=== PATIENT | female | born 1965 | race Caucasian/White ===

== ENCOUNTER → 2020-01-04 | Outpatient (CLI) | payer BC ==
[~2020-01-04] MED LIST: ALPR1TAB2 PO; AMLO5TAB10 PO; BUSP5TAB PO; CELE100C59 PO; DOXE6TAB3 PO; ERGO500027 PO; GABA-586 PO; SIMV10TA15 PO; SUCR1TAB35 PO; TRAM50TA PO; VENL75TA PO
--- NOTE | 2020-01-04 15:13 | RAD ---
AP and Lateral Views of the Chest 01/04/2020 12:00 AM Indication: Angina, cough Comparison: None Findings: There is no focal consolidation or infiltrate identified. The cardiomediastinal silhouette is within normal limits. There is no evidence of pneumothorax or pleural effusion. No acute osseous abnormalities are identified. Impression: No evidence of acute cardiopulmonary process. Electronically signed by: Christian Wahl MD (01/04/2020 3:10 PM) [id number]
== END | disposition home or self-care (01) ==
LOC: MERGE 14:41 → DXRAD 14:41
PROVIDERS: ATTEND Family Medicine
DX: J20.8 Acute bronchitis due to other specified organisms (principal); G47.37 Central sleep apnea in conditions classified elsewhere; M51.37 Other intervertebral disc degeneration, lumbosacral region; K25.9 Gastric ulcer, unspecified as acute or chronic, without hemorrhage or perforation; K58.8 Other irritable bowel syndrome; M79.7 Fibromyalgia; I10 Essential (primary) hypertension; E88.81 Metabolic syndrome and other insulin resistance; I73.00 Raynaud's syndrome without gangrene; I20.1 Angina pectoris with documented spasm; E78.5 Hyperlipidemia, unspecified
CPT/HCPCS: 71046

== ENCOUNTER 2020-01-05 15:36 | Inpatient (IN) | payer BC ==
[~2020-01-05] VITALS: Ht 162.6 cm; Wt 104.3 kg
[~2020-01-05 15:36] MED LIST changes: -AMLO5TAB10 PO; -SUCR1TAB35 PO
[2020-01-05] MEDS ORDERED: IV NORMAL SALINE 1,000ML 1,000 ML IV SCH (16:02)
--- NOTE | 2020-01-05 16:06 | PHYS DOC ---
Adult General Chief Complaint Chief Complaint: CHEST PAIN HPI HPI Patient is a 54-year-old female with past medical history significant for myocardial infarction with no intervention needed and is currently on no anticoagulation. She also has a history of hypertension hyperlipidemia. Patient presents secondary to ongoing chest pain x3 days duration that has worsened and is currently rated 8/10 located on the left side of the chest with radiation of the back and left arm described as an ache/pressure. She was seen at her primary care physician's office who sent her over to the ER. She was given 1 spray of sublingual nitro which improved her pain and also a full aspiri n. Patient states that her pain is worse with exertion. Review of Systems Review of Systems All other systems were reviewed and found to be within normal limits, except as documented in this note. Allergies Allergies Allergies Coded Allergies Type Severity Reaction Last Updated Verified No Known Drug Allergies 01/05/20 No Physical Exam Physical Exam Constitutional: Well developed, well nourished, no acute distress, non-toxic appearance. [] HENT: Normocephalic, atraumatic, bilateral external ears normal, oropharynx moist, no oral exudates, nose normal. [] Eyes: PERRLA, EOMI, conjunctiva normal, no discharge. [] Neck: Normal range of motion, no tenderness, supple, no stridor. [] Cardiovascular:Heart rate regular rhythm, no murmur [] Lungs & Thorax: Bilateral breath sounds clear to auscultation [] Abdomen: Bowel sounds normal, soft, no tenderness, no masses, no pulsatile masses. [] Skin: Warm, dry, no erythema, no rash. [] Back: No tenderness, no CVA tenderness. [] Extremities: No tenderness, no cyanosis, no clubbing, ROM intact, no edema. [] Neurologic: Alert and oriented X 3, normal motor function, normal sensory function, no focal deficits noted. [] Psychologic: Affect normal, judgement normal, mood normal. [] EKG EKG EKG shows sinus rhythm with a heart rate of [address] changes. Intervals are normal. [] Radiology/Procedures Radiology/Procedures [] Course & Med Decision Making Course & Med Decision Making Pertinent Labs and Imaging studies reviewed. (See chart for details) This patient is seen for chest pain with a very significant history. Examination and history suggest unstable angina. Will obtain EKG and laboratory analysis and chest x-ray. Will give 3 sublingual nitro and 2 mg of morphine to try and relieve her pain. Patient is already received aspirin. 1700: Pain 4/:10 nitro and 2 mg of morphine[address] Will place 1 inch of Nitropaste. Labs pending. 1756: Patient is still having ongoing chest discomfort despite 1 inch of Nitropaste. Her blood pressure remains elevated as well with 190 systolic. We will stop Nitropaste and start a nitro drip. I did speak to Dr. Vela who accepts admission to the ICU and will consult cardiology. Trend troponins overnight. Dragon Disclaimer Dragon Disclaimer This electronic medical record was generated, in whole or in part, using a voice recognition dictation system. Departure Departure: Impression: Primary Impression: Unstable angina Additional Impression: Hypertension Disposition: ADMITTED INPATIENT Admitting Physician: David Vela Condition: STABLE Referrals: DAVID VELA MD (PCP) HEART Score for Chest Pain PTs The HEART Score for CP Pts HEART Score for Chest Pain: HEART Score for Chest Pain Response (Comments) Value History Moderately Suspicious 1 ECG Normal 0 Age >45 - < 65 1 Risk Factors >3 Risk Factors or Hx CAD 2 Troponin < Normal Limit 0 Total 4 Risk Factors: Risk Factors: DM, Current or recent (<one month) smoker, HTN, HLP, family history of CAD, obesity. Risk Scores: Score 0 - 3: 2.5% MACE over next 6 weeks - Discharge Home Score 4 - 6: 20.3% MACE over next 6 weeks - Admit for Clinical Observation Score 7 - 10: 72.7% MACE over next 6 weeks - Early Invasive Strategies Problem Qualifiers BENITEZ LAST DO Jan 05, 2020 16:06
[2020-01-05] MEDS ORDERED: NITROGLYCERIN SUBLINGUAL 0.4 MG BOTTLE OF 25. SL PRN (16:15)
[2020-01-05] MEDS ORDERED: MORPHINE SULFATE 2 MG/ML DISP.SYRIN. IV ONE ×2 (16:15→18:45)
--- NOTE | 2020-01-05 16:37 | RAD ---
Single view of the chest. 01/05/2020 4:02 PM Indication: Chest pain Comparison: None Findings: There is no focal consolidation. There is no pleural effusion or pneumothorax. The cardiomediastinal silhouette and pulmonary vasculature are within normal limits. No acute osseous abnormalities are seen. Impression: No evidence of acute cardiopulmonary process. Electronically signed by: Christian Wahl MD (01/05/2020 4:34 PM) [id number]
[2020-01-05 16:40] LABS: BASO % 0 % (0-3); EOS # 0.2 x10^3/uL (0.0-0.7); EOS % 3 % (0-3); HEMATOCRIT 41.8 % (36.0-47.0); HEMOGLOBIN 13.6 g/dL (12.0-15.5); LYMPH # 3.3 x10^3/uL (1.0-4.8); LYMPH % 39 % (24-48); MEAN CORPUSCULAR HEMOGLOBIN 29 pg (25-35); MEAN CORPUSCULAR HGB CONC 33 g/dL (31-37); MEAN CORPUSCULAR VOLUME 89 fL (79-100); MONO # 0.6 x10^3/uL (0.0-1.1); MONO % 7 % (0-9); NEUT # 4.4 x10^3uL (1.8-7.7); NEUT % 52 % (31-73); PLATELET COUNT 408 x10^3/uL (140-400); RED BLOOD COUNT 4.68 x10^6/uL (3.50-5.40); WHITE BLOOD COUNT 8.5 x10^3/uL (4.0-11.0)
[2020-01-05] MEDS ORDERED: NITROGLYCERIN OINT 1 GM PACKET. TP ONE (17:00)
[2020-01-05 17:38] LABS: ANION GAP 11 (6-14); BLOOD UREA NITROGEN 7 mg/dL (7-20); CARBON DIOXIDE 26 mmol/L (21-32); CHLORIDE 104 mmol/L (98-107); CREATININE 0.6 mg/dL (0.6-1.0); GFR 104.6; GLUCOSE 93 mg/dL (70-99); POTASSIUM 3.7 mmol/L (3.5-5.1); SODIUM 141 mmol/L (136-145)
[2020-01-05 17:54] LABS: LIPASE 52 U/L (73-393); MAGNESIUM 1.9 mg/dL (1.8-2.4)
[2020-01-05] MEDS ORDERED: ONDANSETRON PF 4 MG/2 ML VIAL. IVP PRN (18:00)
[2020-01-05] MEDS ORDERED: NITROGLYCERIN PREMIX 250 ML IV ONE (18:00)
--- NOTE | 2020-01-05 19:45 | NUR ---
Admission Note: Pt transported via EMS from ED to ICU room 2, VSS, no n/v at this time. Pt continues to have pain (morphine given), Nitro drip infusing as ordered, pt voiding clear yellow urine, admission documentation completed. Pt unsure of some of home medications (completed what she new and ordered per physician), to bring home meds in am to ensure accuracy. Pt oriented to room, box lunch provided, will continue to monitor.
[2020-01-05 19:57] VITALS: BP 173/82
--- NOTE | 2020-01-05 19:57 | EKG ---
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
[2020-01-05 20:00] VITALS: BP 176/89
[2020-01-05] MEDS ORDERED: AMLO5TAB10 PO (20:12)
[2020-01-05] MEDS ORDERED: SUCR1TAB35 PO (20:12)
[2020-01-05] MEDS ORDERED: traMADol 50 MG TABLET PO PRN (20:15)
[2020-01-05] MEDS: MORPHINE SULFATE 2 MG/ML DISP.SYRIN. IVP PRN (20:21)
[2020-01-05 21:00] VITALS: BP 178/93
[2020-01-05] MEDS ORDERED: ACETAMINOPHEN 500 MG TABLET PO PRN (21:00)
[2020-01-05] MEDS ORDERED: NON FORMULARY ITEM (Doxepin Hcl (Silenor) 6 MG) PO SCH (21:00)
[2020-01-05] MEDS: CELECOXIB 100 MG CAPSULE PO SCH (21:02)
[2020-01-05] MEDS: SIMVASTATIN 10 MG TABLET PO SCH (21:02)
[2020-01-05] MEDS: ALPRAZolam 0.5 MG TABLET PO SCH (21:02)
[2020-01-05] MEDS: GABAPENTIN 300 MG CAPSULE. PO SCH (21:02)
[2020-01-05 22:00] VITALS: BP 122/67
[2020-01-05 23:00] VITALS: BP 123/54
[2020-01-05] MEDS ORDERED: ANTI-COAG MONITOR BY PHARMACY. MC PRN (23:30)
[2020-01-06] VITALS (20 sets, daily range): BP systolic 108–169; BP diastolic 57–106
[2020-01-06] MEDS: ENOXAPARIN ** NOTE DOSE ** SYRINGE SQ SCH ×3 (01:57→20:40)
[2020-01-06] MEDS: MORPHINE SULFATE 2 MG/ML DISP.SYRIN. IVP PRN ×2 (02:16→11:17)
--- NOTE | 2020-01-06 05:58 | NUR ---
Shift Note: Pt is a/o x4, VSS, no further c/o chest pain, chronic back pain (tramadol given), nitro drip infusing as ordered, CT angio for this am (attempted IV x2 but was unsuccessful, will forward to dayshift to attempt), pt voiding clear yellow urine, advised pt NPO until after test.
[2020-01-06] MEDS: SUCRALFATE 1 GM TABLET. PO SCH ×3 (08:01→15:45)
[2020-01-06] MEDS: CELECOXIB 100 MG CAPSULE PO SCH ×2 (08:01→20:39)
[2020-01-06] MEDS: VENLAFAXINE 75 MG TABLET. PO SCH (08:01)
[2020-01-06] MEDS: amLODIPine BESYLATE 5 MG TABLET PO SCH (08:01)
[2020-01-06] MEDS: GABAPENTIN 300 MG CAPSULE. PO SCH ×3 (08:01→20:39)
[2020-01-06] MEDS: ALPRAZolam 0.5 MG TABLET PO SCH ×3 (08:02→20:39)
[2020-01-06] MEDS ORDERED: IOHEXOL 350 MG/ML 100 ML VIAL. IV ONE (09:15)
--- NOTE | 2020-01-06 10:15 | RAD ---
EXAM: CT Pulmonary Angiogram INDICATION: Shortness of breath, elevated d-dimer. TECHNIQUE: Multi-detector row images were acquired from the thoracic inlet through the upper abdomen with the use of IV contrast. Sagittal and coronal images were acquired from the transaxial data. MIP images of the pulmonary arteries were obtained. All CT scans performed at this facility utilize dose optimization techniques as appropriate to the exam, including the following: Automated exposure control and adjustment of the mA and/or KV according to patient size (this includes techniques or standardized protocols for targeted exams where dose is indication/reason for exam). IV CONTRAST: Administered COMPARISON: None FINDINGS: PULMONARY ARTERIES: No pulmonary emboli are identified. CARDIOVASCULAR: Unremarkable Aorta is normal caliber. MEDIASTINUM & KELY: Small right inferior hilar lymph node measuring 9 mm (image 60 of axial series 3). No bulky mediastinal or hilar adenopathy. LUNGS: Mild paraseptal pattern emphysema, upper lobe predominant. No suspicious lung nodules or masses identified. PLEURAL SPACE: Small right pleural effusion and mild left lower lobe basilar atelectasis. OSSEOUS & SOFT TISSUE: Unremarkable ABDOMEN: The visualized portions of the upper abdomen are unremarkable. IMPRESSION: 1. No pulmonary emboli. 2. Small left pleural effusion and associated mild left basilar atelectasis, uncertain etiology. It is amenable to diagnostic thoracentesis if considered clinically helpful. 3. Small infrahilar right 9 mm lymph node could be reactive. This can be reassessed in follow-up as chronically warranted. Electronically signed by: Lorelei Dumont MD (01/06/2020 10:12 AM) [id number]
--- NOTE | 2020-01-06 18:48 | NUR ---
PT feeling better today, no episodes of CP today. Pt was drowsy and slept most the day. PT does have significant sleep apnea and does drop o2 even on 4 L NC with apnic spells. Gabe COELHO
[2020-01-06] MEDS ORDERED: METOPROLOL SUCC 24HR ER 25 MG TAB.ER.24H. PO ONE (19:30)
[2020-01-06] MEDS: MORPHINE SULFATE 2 MG/ML DISP.SYRIN. IV PRN ×2 (19:34→21:46)
--- NOTE | 2020-01-06 19:41 | PDOC2 ---
CARDIAC CONSULT DATE OF CONSULT Date Of Consult DATE: 01/06/20 TIME: 19:31 REASON FOR CONSULT Reason for Consult chest pain, HTN REFERRING PHYSICIAN Referring Physician Dr. Vela SOURCE Source: Chart review, Patient HPI History of Present Illness The patient is a 54 yr old female with a history of CAD. She was admitted for episodes of chest pain. Her EKG shows no ischemic changes. Troponins have been normal x 3. She is feeling better with her chest pain resolved. Additionally her BP is also significantly improved now at 134/88. PAST MEDICAL HISTORY Cardiovascular: CAD, HTN, hyperipidemia FAMILY HISTORY Family History: Heart Disease, Hypertension SOCIAL HISTORY Smoke: No ALCOHOL: none CURRENT MEDICATIONS Current Medications Current Medications Nitroglycerin (Nitrostat) 0.4 mg PRN Q5MIN PRN SL CP RATING > 1/10 Last administered on 01/05/20at 16:42; Start 01/05/20 at 16:15; Stop 01/06/20 at 16:14; Status DC Morphine Sulfate (Morphine 2mg Syringe) 2 mg 1X ONCE IV Last administered on 01/05/20at 16:43; Start 01/05/20 at 16:15; Stop 01/05/20 at 16:20; Status DC Sodium Chloride 1,000 ml @ 1,000 mls/hr Q1H IV Last administered on 01/05/20at 16:43; Start 01/05/20 at 16:02; Stop 01/05/20 at 17:01; Status DC Nitroglycerin (Nitro-Bid Oint) 1 inch 1X ONCE TP Last administered on 01/05/20at 17:23; Start 01/05/20 at 17:00; Stop 01/05/20 at 17:01; Status DC Nitroglycerin/ Dextrose 250 ml @ 0 mls/hr 1X ONCE IV Last administered on 01/05/20at 18:12; Start 01/05/20 at 18:00; Stop 01/05/20 at 18:04; Status DC Ondansetron HCl (Zofran) 4 mg PRN Q4HRS PRN IVP NAUSEA/VOMITING; Start 01/05/20 at 18:00; Stop 01/06/20 at 17:59; Status DC Morphine Sulfate (Morphine 2mg Syringe) 2 mg PRN Q2HR PRN IVP SEVERE PAIN Last administered on 01/06/20at 11:17; Start 01/05/20 at 18:00; Stop 01/06/20 at 17:59; Status DC Morphine Sulfate (Morphine 2mg Syringe) 2 mg 1X ONCE IV Last administered on 01/05/20at 18:38; Start 01/05/20 at 18:45; Stop 01/05/20 at 18:46; Status DC Amlodipine Besylate (Norvasc) 5 mg DAILY PO Last administered on 01/06/20at 08:0 1; Start 01/06/20 at 09:00 Celecoxib (CeleBREX) 100 mg BID PO Last administered on 01/06/20at 08:01; Start 01/05/20 at 21:00 Gabapentin (Neurontin) 600 mg TID PO Last administered on 01/06/20at 15:45; Start 01/05/20 at 21:00 Simvastatin (Zocor) 10 mg QHS PO Last administered on 01/05/20at 21:02; Start 01/05/20 at 21:00 Sucralfate (Carafate) 1 gm TIDAC PO Last administered on 01/06/20at 15:45; Start 01/06/20 at 07:30 Tramadol HCl (Ultram) 50 mg PRN Q8HRS PRN PO MILD-MOD PAIN Last administered on 01/06/20at 05:10; Start 01/05/20 at 20:15 Venlafaxine HCl (Effexor) 75 mg DAILY PO Last administered on 01/06/20at 08:01; Start 01/06/20 at 09:00 Alprazolam (Xanax) 1 mg TID PO Last administered on 01/06/20at 15:45; Start 01/05/20 at 21:00 Non-Formulary Medication (Doxepin Hcl (Silenor)) 6 mg HS PO ; Start 01/05/20 at 21:00; Stop 01/06/20 at 19:09; Status DC Vitamin D (Vitamin D3) 50,000 unit WEEKLY PO ; Start 01/12/20 at 09:00 Acetaminophen (Tylenol) 1,000 mg PRN Q8HRS PRN PO PAIN / TEMP Last administered on 01/05/20at 21:02; Start 01/05/20 at 21:00 Enoxaparin Sodium (Lovenox 100mg Syringe) 100 mg Q12HR SQ Last administered on 01/06/20at 08:02; Start 01/06/20 at 00:00 Info (Anti-Coagulation Monitoring By Pharmacy) 1 each PRN DAILY PRN MC SEE COMMENTS; Start 01/05/20 at 23:30 Iohexol (Omnipaque 350 Mg/ml) 100 ml 1X ONCE IV Last administered on 01/06/20at 09:22; Start 01/06/20 at 09:15; Stop 01/06/20 at 09:25; Status DC Metoprolol Succinate (Toprol Xl) 25 mg 1X ONCE PO ; Start 01/06/20 at 19:30; Stop 01/06/20 at 19:31 Doxepin HCl (SINEquan) 10 mg QHS PO ; Start 01/06/20 at 21:00 Metoprolol Succinate (Toprol Xl) 25 mg DAILY PO ; Start 01/07/20 at 09:00 Morphine Sulfate (Morphine 2mg Syringe) 2 mg PRN Q2HR PRN IV PAIN; Start 01/06/20 at 19:30; Status UNV Active Scripts Active Reported Carafate (Sucralfate) 1 Gm Tablet 1 Gm PO TIDAC Amlodipine Besylate 5 Mg Tablet 5 Mg PO DAILY Vitamin D2 (Ergocalciferol (Vitamin D2)) 50,000 Unit Capsule 1 Cap PO WEEKLY Venlafaxine Hcl 75 Mg Tablet 1 Tab PO DAILY Simvastatin 10 Mg Tablet 1 Tab PO QHS Celecoxib 100 Mg Capsule 100 Mg PO BID Silenor (Doxepin Hcl) 6 Mg Tablet 10 Mg PO HS Tramadol Hcl (Tramadol HCl) 50 Mg Tablet 50 Mg PO PRN Q8HRS PRN Xanax (Alprazolam) 1 Mg Tablet 1 Tab PO TID Gabapentin (Gabapentin) 300 Mg Capsule 600 Mg PO TID ALLERGIES Allergies: Coded Allergies: No Known Drug Allergies (Unverified , 01/05/20) ROS General: YES: Fatigue Respiratory: YES: Shortness of breath Cardiovascular: yes: Chest Pain PHYSICAL EXAM General: mild distress HEENT: Atraumatic Lungs: Other (mildly decreased breath sounds) Heart: Regular rate Abdomen: Normal bowel sounds VITALS Vital Signs Vital Signs Date Time Temp Pulse Resp B/P (MAP) Pulse Ox O2 Delivery O2 Flow Rate FiO2 01/06/20 18:00 84 20 108/73 (85) 96 Nasal Cannula 4.0 01/06/20 16:00 98.0 LABS LABS Laboratory Tests Test 01/05/20 16:16 01/05/20 17:08 01/05/20 17:45 01/05/20 22:30 White Blood Count 8.5 x10^3/uL (4.0-11.0) Red Blood Count 4.68 x10^6/uL (3.50-5.40) Hemoglobin 13.6 g/dL (12.0-15.5) Hematocrit 41.8 % (36.0-47.0) Mean Corpuscular Volume 89 fL (79-100) Mean Corpuscular Hemoglobin 29 pg (25-35) Mean Corpuscular Hemoglobin Concent 33 g/dL (31-37) Red Cell Distribution Width 16.0 % (11.5-14.5) Platelet Count 408 x10^3/uL (140-400) Neutrophils (%) (Auto) 52 % (31-73) Lymphocytes (%) (Auto) 39 % (24-48) Monocytes (%) (Auto) 7 % (0-9) Eosinophils (%) (Auto) 3 % (0-3) Basophils (%) (Auto) 0 % (0-3) Neutrophils # (Auto) 4.4 x10^3uL (1.8-7.7) Lymphocytes # (Auto) 3.3 x10^3/uL (1.0-4.8) Monocytes # (Auto) 0.6 x10^3/uL (0.0-1.1) Eosinophils # (Auto) 0.2 x10^3/uL (0.0-0.7) Basophils # (Auto) 0.0 x10^3/uL (0.0-0.2) Sodium Level 141 mmol/L (136-145) Potassium Level 3.7 mmol/L (3.5-5.1) Chloride Level 104 mmol/L (98-107) Carbon Dioxide Level 26 mmol/L (21-32) Anion Gap 11 (6-14) Blood Urea Nitrogen 7 mg/dL (7-20) Creatinine 0.6 mg/dL (0.6-1.0) Estimated GFR (Cockcroft-Gault) 104.6 Glucose Level 93 mg/dL (70-99) Calcium Level 9.0 mg/dL (8.5-10.1) Magnesium Level 1.9 mg/dL (1.8-2.4) Creatine Kinase 48 U/L (26-192) Creatine Kinase MB (Mass) < 0.5 ng/mL (0.0-3.6) Creatine Kinase MB Relative Index 1.0 % (0-4) Troponin I Quantitative < 0.017 ng/mL (0-0.055) < 0.017 ng/mL (0-0.055) AL-Xbw-Z-Type Natriuretic Peptide 224 pg/mL (0-124) Lipase 52 U/L (73-393) Prothrombin Time 9.9 SEC (9.4-11.4) Prothromb Time International Ratio 1.0 (0.9-1.1) Activated Partial Thromboplast Time 26 SEC (23-33) D-Dimer (Kati) 2.18 mg/L (0.00-0.50) Test 01/06/20 02:00 Troponin I Quantitative < 0.017 ng/mL (0-0.055) EKG EKG sinus rhythm, no ischemic changes ASSESSMENT/PLAN Assessment/Plan 1. Chest pain. Resolved. No elevation in troponin. No acute EKG changes. Would continue present medications and increase activity. If stable overnight possibly home tomorrow with outpt stress testing. Discussed with the patient. 2. HTN. Significantly improved. Continue present medications. 3. CTA is negative for a PE. May increase activity. 4. HLD. Will check lab. Thank you for allowing us to participate in the care of your patient. SHASHA CEJA MD Jan 06, 2020 19:41
[2020-01-06] MEDS: SIMVASTATIN 10 MG TABLET PO SCH (20:39)
[2020-01-06] MEDS ORDERED: DOXEPIN HCL 10 MG CAPSULE PO SCH (21:00)
--- NOTE | 2020-01-06 21:47 | PN ---
DATE: SUBJECTIVE: The patient came in initially with chest pain, although initially seen in the office, was transferred to the Emergency Room because of her accelerated hypertension. The patient initially in the Emergency Room in course of being ruled out for chest pain was noted to have blood pressure in the range of approximately 240/120 or so. The patient in turn had been placed on a nitro drip and monitored carefully in the ICU with cardiac enzymes and the like. Her blood pressure gradually has come down. She is not complaining of chest pain at the present time and last blood pressure was 130/70, respiratory rate 16, pulse 90. CTA was unremarkable because of positive D-dimer. Otherwise, her cardiac enzymes were negative. BNP was slightly elevated to 224, probably related to the hypertension. D-dimer was greater than 2. PHYSICAL EXAMINATION: GENERAL: The patient is alert and oriented x 3. Speech is fluent and spontaneous. LUNGS: Diminished, but clear. CARDIOVASCULAR: Regular sinus rhythm. ABDOMEN: Soft, diffuse tenderness. No rebound or guarding. Positive bowel sounds. EXTREMITIES: No clubbing, cyanosis, nor edema. The patient has an old injury to her left leg as well as her left wrist, has plates in there. NEUROLOGIC: The patient otherwise is doing well. IMPRESSION: Hypertensive urgency, chest pain, unknown etiology, unstable angina, morbid obesity. PLAN: The patient continues to be monitored and adjusted on her blood pressure medications before being discharged. WAYNE DENNY MD DR: ELIA/jorge JOB#: [id number] / [id number]
[2020-01-07 00:08] VITALS: BP 125/67
[2020-01-07] MEDS: SUCRALFATE 1 GM TABLET. PO SCH ×2 (07:30→11:30)
[2020-01-07 08:00] VITALS: BP 130/59
[2020-01-07] MEDS: amLODIPine BESYLATE 5 MG TABLET PO SCH (09:00)
[2020-01-07] MEDS: VENLAFAXINE 75 MG TABLET. PO SCH (09:00)
[2020-01-07] MEDS: ALPRAZolam 0.5 MG TABLET PO SCH ×2 (09:00→15:02)
[2020-01-07] MEDS: ENOXAPARIN ** NOTE DOSE ** SYRINGE SQ SCH (09:00)
[2020-01-07] MEDS: CELECOXIB 100 MG CAPSULE PO SCH (09:00)
[2020-01-07] MEDS ORDERED: METOPROLOL SUCC 24HR ER 25 MG TAB.ER.24H. PO SCH (09:00)
[2020-01-07] MEDS: GABAPENTIN 300 MG CAPSULE. PO SCH ×2 (09:00→15:02)
[2020-01-07 10:00] VITALS: BP 134/54
[2020-01-07] MEDS ORDERED: ACETAMINOPHEN/CODEINE 300/30MG TABLET PO PRN ×3 (10:45→12:15)
[2020-01-07 14:32] VITALS: BP 114/65
--- NOTE | 2020-01-07 15:06 | NUR ---
Patient is D/C home with self care. Patient is given all discharge instructions and follow up instructions. IV is D/C'd and tele monitor removed. Patient ambulated off unit accompanied by self.
[2020-01-12] MEDS ORDERED: CHOLECALCIFEROL (VITAMIN D3) 50,000 UNIT CAPSULE PO SCH (09:00)
== END 2020-01-07 15:06 | disposition home or self-care (01) | DRG 392 ==
LOC: ER 15:36 → ICU 17:54 → ER 19:33 → 1 SOUTH 01-07 12:26
PROVIDERS: ADMIT Family Medicine; ATTEND Family Medicine
DX: K21.9 Gastro-esophageal reflux disease without esophagitis (principal); I25.110 Atherosclerotic heart disease of native coronary artery with unstable angina pectoris; I10 Essential (primary) hypertension; E78.5 Hyperlipidemia, unspecified; I16.0 Hypertensive urgency; E66.01 Morbid (severe) obesity due to excess calories; I25.2 Old myocardial infarction; Z82.49 Family history of ischemic heart disease and other diseases of the circulatory system; Z68.39 Body mass index [BMI] 39.0-39.9, adult
CPT/HCPCS: 36415; 71045; 71275; 80048; 80061; 82553; 83690; 83735; 83880; 84443; 84484; 85025; 85379; 85610; 85730; 93005; 96361; 96365; 96375; J1650; J2270; J3490; Q9967; 99285-25; J7030

== ENCOUNTER 2020-03-29 16:17 | Observation (INO) | payer BC ==
[~2020-03-29] VITALS: Ht 162.6 cm; Wt 108.7 kg
[~2020-03-29 16:17] MED LIST changes: +AMLO5TAB10 PO; +SUCR1TAB35 PO
--- NOTE | 2020-03-29 16:42 | EKG ---
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
[2020-03-29 17:00] LABS: BASO # 0.1 x10^3/uL (0.0-0.2); BASO % 1 % (0-3); EOS # 0.3 x10^3/uL (0.0-0.7); EOS % 3 % (0-3); HEMATOCRIT 39.8 % (36.0-47.0); HEMOGLOBIN 12.9 g/dL (12.0-15.5); LYMPH # 4.3 x10^3/uL (1.0-4.8); LYMPH % 43 % (24-48); MEAN CORPUSCULAR HEMOGLOBIN 30 pg (25-35); MEAN CORPUSCULAR HGB CONC 32 g/dL (31-37); MEAN CORPUSCULAR VOLUME 92 fL (79-100); MONO # 0.8 x10^3/uL (0.0-1.1); MONO % 8 % (0-9); NEUT # 4.6 x10^3uL (1.8-7.7); NEUT % 45 % (31-73); PLATELET COUNT 366 x10^3/uL (140-400); RED BLOOD COUNT 4.32 x10^6/uL (3.50-5.40); RED CELL DISTRIBUTION WIDTH 16.5 % (11.5-14.5); WHITE BLOOD COUNT 10.2 x10^3/uL (4.0-11.0)
[2020-03-29] MEDS ORDERED: NITROGLYCERIN SUBLINGUAL 0.4 MG BOTTLE OF 25. SL PRN (17:00)
[2020-03-29] MEDS ORDERED: ASPIRIN 325 MG TABLET PO ONE (17:00)
[2020-03-29 17:07] LABS: CALCIUM 9.1 mg/dL (8.5-10.1); POTASSIUM 3.3 mmol/L (3.5-5.1)
[2020-03-29 17:20] LABS: ALBUMIN 3.9 g/dL (3.4-5.0); ALBUMIN/GLOBULIN RATIO 1.1 (1.0-1.7); MAGNESIUM 2.4 mg/dL (1.8-2.4); TOTAL BILIRUBIN 0.1 mg/dL (0.2-1.0); TOTAL PROTEIN 7.5 g/dL (6.4-8.2)
--- NOTE | 2020-03-29 17:26 | PHYS DOC ---
Past History Past Medical History: Angina, Depression, Fibromyalgia, High Cholesterol, Hypertension, Sciatica, Other Additional Past Medical Histor: ddd, pvd, headaches, stomach erosion, bleeding ulcer, sleep apnea (WAYNE DURAND DO) Past Surgical History: , Hysterectomy (WAYNE DURAND DO) Alcohol Use: Rarely (WAYNE DURAND DO) General Adult EDM: Chief Complaint: CHEST PAIN HPI: HPI: Patient is a 53-year-old female who presented to ER today for evaluation of left-sided chest pain, left shoulder pain, left arm pain radiated to her neck that started 2 days ago. Patient said the pain become more severe this morning therefore she came here for evaluation. Patient has history of hypertension, diabetes, history of coronary disease. Patient also have history of fibromyalgia. Patient denies any fever, no cough, no abdominal pain or nausea or vomiting. Patient denies being exposed to anybody who tested positive for COVID-19. (WAYNE DURAND DO) Review of Systems: Review of Systems: Constitutional: Denies fever or chills Eyes: Denies change in visual acuity HENT: Denies nasal congestion or sore throat Respiratory: Denies cough or shortness of breath Cardiovascular: Positive for chest pain GI: Denies abdominal pain, nausea, vomiting, bloody stools or diarrhea : Denies dysuria Musculoskeletal: Denies back pain or joint pain Integument: Denies rash Neurologic: Denies headache, focal weakness or sensory changes Endocrine: Denies polyuria or polydipsia Lymphatic: Denies swollen glands Psychiatric: Denies depression or anxiety (WAYNE DURAND DO) Heart Score: HEART Score for Chest Pain: HEART Score for Chest Pain Response (Comments) Value History Moderately Suspicious 1 ECG Nonspecific Repolarizatio 1 Age >45 - < 65 1 Risk Factors >3 Risk Factors or Hx CAD 2 Troponin < Normal Limit 0 Total 5 Risk Factors: Risk Factors: DM, Current or recent (<one month) smoker, HTN, HLP, family history of CAD, obesity. Risk Scores: Score 0 - 3: 2.5% MACE over next 6 weeks - Discharge Home Score 4 - 6: 20.3% MACE over next 6 weeks - Admit for Clinical Observation Score 7 - 10: 72.7% MACE over next 6 weeks - Early Invasive Strategies (WAYNE DURAND DO) Current Medications: Current Meds: Current Medications Medications (Trade) Dose Ordered Sig/Juno Start Time Stop Time Status Last Admin Dose Admin Aspirin (Antonieta Aspirin) 325 mg 1X ONCE 03/29/20 17:00 03/29/20 17:01 DC 03/29/20 16:58 325 MG Nitroglycerin (Nitrostat) 0.4 mg PRN Q5MIN PRN 03/29/20 17:00 03/29/20 16:58 0.4 MG (WAYNE DURAND DO) Allergies: Allergies: Allergies Coded Allergies Type Severity Reaction Last Updated Verified No Known Drug Allergies 01/05/20 No (WAYNE DURAND DO) Physical Exam: PE: Constitutional: Well developed, well nourished, no acute distress, non-toxic appearance. [] HENT: Normocephalic, atraumatic, bilateral external ears normal, oropharynx moist, no oral exudates, nose normal. [] Eyes: PERRLA, EOMI, conjunctiva normal, no discharge. [] Neck: Normal range of motion, no tenderness, supple, no stridor. [] Cardiovascular:Heart rate regular rhythm, no murmur [] Lungs & Thorax: Bilateral breath sounds clear to auscultation [] Abdomen: Bowel sounds normal, soft, no tenderness, no masses, no pulsatile masses. [] Skin: Warm, dry, no erythema, no rash. [] Back: No tenderness, no CVA tenderness. [] Extremities: No tenderness, no cyanosis, no clubbing, ROM intact, no edema. [] Neurologic: Alert and oriented X 3, normal motor function, normal sensory function, no focal deficits noted. [] Psychologic: Affect normal, judgement normal, mood normal. [] (WAYNE DURAND DO) Current Patient Data: Labs: Laboratory Tests Test 03/29/20 16:28 White Blood Count 10.2 x10^3/uL (4.0-11.0) Red Blood Count 4.32 x10^6/uL (3.50-5.40) Hemoglobin 12.9 g/dL (12.0-15.5) Hematocrit 39.8 % (36.0-47.0) Mean Corpuscular Volume 92 fL (79-100) Mean Corpuscular Hemoglobin 30 pg (25-35) Mean Corpuscular Hemoglobin Concent 32 g/dL (31-37) Red Cell Distribution Width 16.5 % (11.5-14.5) H Platelet Count 366 x10^3/uL (140-400) Neutrophils (%) (Auto) 45 % (31-73) Lymphocytes (%) (Auto) 43 % (24-48) Monocytes (%) (Auto) 8 % (0-9) Eosinophils (%) (Auto) 3 % (0-3) Basophils (%) (Auto) 1 % (0-3) Neutrophils # (Auto) 4.6 x10^3uL (1.8-7.7) Lymphocytes # (Auto) 4.3 x10^3/uL (1.0-4.8) Monocytes # (Auto) 0.8 x10^3/uL (0.0-1.1) Eosinophils # (Auto) 0.3 x10^3/uL (0.0-0.7) Basophils # (Auto) 0.1 x10^3/uL (0.0-0.2) Sodium Level 139 mmol/L (136-145) Potassium Level 3.3 mmol/L (3.5-5.1) L Chloride Level 103 mmol/L (98-107) Carbon Dioxide Level 24 mmol/L (21-32) Anion Gap 12 (6-14) Blood Urea Nitrogen 8 mg/dL (7-20) Creatinine 1.0 mg/dL (0.6-1.0) Estimated GFR (Cockcroft-Gault) 58.0 BUN/Creatinine Ratio 8 (6-20) Glucose Level 95 mg/dL (70-99) Calcium Level 9.1 mg/dL (8.5-10.1) Magnesium Level Pending Total Bilirubin Pending Aspartate Amino Transferase (AST) Pending Alanine Aminotransferase (ALT) Pending Alkaline Phosphatase Pending [id number] Natriuretic Peptide Pending Total Protein Pending Albumin Pending Albumin/Globulin Ratio Pending Lipase Pending Vital Signs: Vital Signs Date Time Temp Pulse Resp B/P (MAP) Pulse Ox O2 Delivery O2 Flow Rate FiO2 03/29/20 17:06 61 16 143/64 (90) 91 Room Air 03/29/20 16:21 97.9 (WAYNE DURAND DO) EKG: EKG: EKG was done at 1624, heart rate of 68 bpm, normal sinus rhythm, no ST segment elevation. (WAYNE DURAND DO) Radiology/Procedures: Radiology/Procedures: [][address], [place] [address] IMAGING REPORT Signed PATIENT: MARY LYONOUNT: [id number] : 1965 LOCATION: ER AGE: 54 SEX: F EXAM STATUS: REG ER ORD. PHYSICIAN: WAYNE DURAND DO REASON: chest pain PROCEDURE: CHEST AP ONLY CHEST AP ONLY INDICATION: Reason: chest pain / Spl. Instructions: / History: . COMPARISON STUDY: 01/05/2020. FINDINGS: Lungs: Normal lung volume. No pulmonary mass or consolidation. The tracheobronchial tree and hilar structures are normal. Pleura: No pleural effusion or pneumothorax. Heart and Mediastinum: Stable cardiomediastinal silhouette and great vessels. Bones and Soft Tissues: The bones and soft tissues are within normal limits. IMPRESSION: No acute cardiopulmonary process. Electronically signed by: Liv Alcantara MD (03/29/2020 5:36 PM) [facility] DICTATED AND SIGNED BY: LIV ALCANTARA MD DATE: 03/29/20 0233 CC: WAYNE DENNY MD; WAYNE DURAND DO ~ (WAYNE DURAND DO) Course & Med Decision Making: Course & Med Decision Making Pertinent Labs and Imaging studies reviewed. (See chart for details) Patient is a 53-year-old female who was evaluated in the ER due to substernal chest pain, EKG showed normal sinus rhythm, patient be admitted to hospital for observation. (WAYNE DURAND DO) Course & Med Decision Making See Dr. Durand notes for details- Pt. Admit to Dr. Mercado rn concurrent review for . Cardiology consult. Impression: 1. Chest Pain 2. Mild hypokalemia 3. HTN 4. Obese 5 Mild Hypokalemia 3.3 (JEANIE LIN MD) Leonides Disclaimer: Leonides Disclaimer: This electronic medical record was generated, in whole or in part, using a voice recognition dictation system. (WAYNE DURAND DO) Departure Departure: Impression: Primary Impression: Chest pain Disposition: ADMITTED INPATIENT Admitting Physician: Arline Mercado (WAYNE DURAND DO) Condition: STABLE Referrals: WAYNE DENNY MD (PCP) Dragon Disclaimer This chart was dictated in whole or in part using Voice Recognition software in a busy, high-work load, and often noisy Emergency Department environment. It may contain unintended and wholly unrecognized errors or omissions. (JEANIE LIN MD) Dragon Disclaimer This chart was dictated in whole or in part using Voice Recognition software in a busy, high-work load, and often noisy Emergency Department environment. It may contain unintended and wholly unrecognized errors or omissions. (WAYNE DURAND DO) WAYNE DURAND DO Mar 29, 2020 17:26 JEANIE LIN MD Mar 29, 2020 18:33
[2020-03-29] MEDS ORDERED: ONDANSETRON PF 4 MG/2 ML VIAL. IVP ONE (17:30)
[2020-03-29] MEDS ORDERED: MORPHINE SULFATE 4 MG/ML DISP.SYRIN. IV ONE (17:30)
--- NOTE | 2020-03-29 17:39 | RAD ---
CHEST AP ONLY INDICATION: Reason: chest pain / Spl. Instructions: / History: . COMPARISON STUDY: 01/05/2020. FINDINGS: Lungs: Normal lung volume. No pulmonary mass or consolidation. The tracheobronchial tree and hilar structures are normal. Pleura: No pleural effusion or pneumothorax. Heart and Mediastinum: Stable cardiomediastinal silhouette and great vessels. Bones and Soft Tissues: The bones and soft tissues are within normal limits. IMPRESSION: No acute cardiopulmonary process. Electronically signed by: George Alcantara MD (03/29/2020 5:36 PM) [facility]
[2020-03-29] MEDS ORDERED: POTASSIUM CHLORIDE 20 MEQ TABLET.ER. PO ONE (17:45)
[2020-03-29] MEDS ORDERED: ENOXAPARIN ** NOTE DOSE ** SYRINGE SQ ONE (19:00)
[2020-03-29 20:24] VITALS: BP 170/78
--- NOTE | 2020-03-29 20:25 | NUR ---
The patient, MARY LYON, 54 y/o, F admitted by LUC CEBALLOS MD, was given written information regarding hospital policies, unit procedures and contact persons. Valuables were checked and vitals were taken. pt is being monitored via telemetry. pt had complaints of chest pain with no shortness of air. pt is currently rest comfortably in bed. will continue to monitor
[2020-03-29] MEDS ORDERED: METO-239 PO (21:27)
[2020-03-29] MEDS ORDERED: RANO500T2 PO (21:27)
[2020-03-29] MEDS ORDERED: LOSA50TA86 PO (21:27)
[2020-03-29] MEDS ORDERED: ACET-704 PO (21:27)
[2020-03-29] MEDS ORDERED: traMADol 50 MG TABLET PO PRN (21:30)
[2020-03-29] MEDS ORDERED: SIMVASTATIN 10 MG TABLET PO SCH (22:00)
[2020-03-29] MEDS: ALPRAZolam 0.5 MG TABLET PO SCH (22:08)
[2020-03-29] MEDS: VENLAFAXINE 75 MG TABLET. PO SCH (22:09)
[2020-03-29] MEDS: SUCRALFATE 1 GM TABLET. PO SCH (22:09)
[2020-03-29] MEDS: amLODIPine BESYLATE 5 MG TABLET PO SCH (22:09)
[2020-03-29] MEDS: GABAPENTIN 300 MG CAPSULE. PO SCH (22:09)
[2020-03-29] MEDS: RANOLAZINE 500 MG TAB.ER.12H PO SCH (22:29)
[2020-03-29] MEDS: METOPROLOL SUCC 24HR ER 25 MG TAB.ER.24H. PO SCH (22:30)
[2020-03-29] MEDS ORDERED: ACETAMINOPHEN/CODEINE 300/30MG TABLET PO PRN (22:30)
[2020-03-29] MEDS: LOSARTAN 50 MG TABLET. PO SCH (22:30)
[2020-03-29] MEDS ORDERED: NICOTINE 14MG PATCH. TD PRN (22:30)
[2020-03-30 04:08] LABS: BACTERIA,URINE FEW /HPF (0-FEW); BILIRUBIN,URINE NEG (NEG); CLARITY,URINE CLEAR; COLOR,URINE YELLOW; GLUCOSE,URINE NEG (NEG); NITRITE,URINE NEG (NEG); RBC,URINE 0 /HPF (0-2); SQUAMOUS EPITHELIAL CELL,UR MOD /LPF; UROBILINOGEN,URINE 0.2 mg/dL (0.2 mg/dL)
[2020-03-30 06:09] VITALS: BP 125/77
[2020-03-30] MEDS: GABAPENTIN 300 MG CAPSULE. PO SCH ×2 (07:39→13:54)
[2020-03-30] MEDS: RANOLAZINE 500 MG TAB.ER.12H PO SCH (07:39)
[2020-03-30] MEDS: SUCRALFATE 1 GM TABLET. PO SCH ×3 (07:39→16:08)
[2020-03-30] MEDS: ALPRAZolam 0.5 MG TABLET PO SCH ×2 (07:40→13:54)
[2020-03-30] MEDS ORDERED: ASPIRIN ENTERIC COATED 81 MG TABLET.DR. PO SCH (08:00)
[2020-03-30] MEDS ORDERED: POTASSIUM CHLORIDE 20 MEQ TABLET.ER. PO SCH (09:00)
--- NOTE | 2020-03-30 09:05 | NUR ---
PATIENT IS A/O X4, NICE AND PLEASANT AND COOPERATES DURING ASSESSMENT, C/O PAIN IN SHOULDERS, NECK AND BACK, DENIED ANY CHEST PAIN, TYLENOL GIVEN ORDERED, PT STATED SHE HAS NUMBNESS/ TINGLING IN HER FEET THAT R/T RAYNAUDS. CONSULT FOR CARDIOLOGY WAS CALLED. WILL CONTINUE TOP MONITOR.
[2020-03-30 10:28] VITALS: BP 102/64
[2020-03-30] MEDS ORDERED: POTASSIUM CHLORIDE 20 MEQ TABLET.ER. PO ONE (13:30)
--- NOTE | 2020-03-30 14:26 | HP ---
ADMIT DATE: 03/29/2020 HISTORY OF PRESENT ILLNESS: The patient is a 54-year-old female patient who came to the Emergency Room complaining of retrosternal chest pain that radiates up to her neck and left arm, left shoulder started about 2 days ago. She stated the pain started when she was lying in bed. Denied any associated nausea or vomiting. Denied any diaphoresis, but did complain of shortness of breath. She rated the pain as 8/10 in severity, has been constant. It is relieved by morphine and her Tylenol #3. The nitroglycerin only cause severe headache and cause her hypertension. She denied any exposure to anybody with COVID-19. She was evaluated in the Emergency Room and has had an EKG, which showed that her heart rate was 68 beats per minute with normal sinus rhythm, no ST segment elevation. Her chest x-ray showed normal lung volumes, no pulmonary mass or consolidation. The tracheobronchial tree and hilar structures are normal. No pleural effusion or pneumothorax. Stable cardiomediastinal silhouette and great vessels. She has had lab work, which showed that including CMP showed that she has hypokalemia and her first set troponin was less than 0.017. Her CBC was within normal range. Her PT, INR and aPTT are normal as well as her urinalysis. She was admitted to do 2 more sets of cardiac enzymes, check her fasting lipid profile and consult the Cardiology team. PAST MEDICAL HISTORY: She stated that she has had 2 myocardial infarction before, was admitted here in December 2019 and was seen by the Cardiology team at that time, she has no EKG changes. Her CT angio was negative for PE and apparently was no clear-cut evidence that she has heart attack at that time. Her other medical problems include hypertension, hyperlipidemia, chronic obstructive pulmonary disease. She also has morbid obesity with body mass index 39. Apparently, she had a polysomnography but the COVID pandemic has postponed or cancelled all her arrangement. PAST SURGICAL HISTORY: Significant for left heart catheterization. She has a birthmark on her left leg that was resected twice and recurred. She did have tonsillectomy, nose surgery, 2 C-sections. ALLERGIES: She has no known drug allergies. MEDICATIONS: She is currently on following medications: She is on Ranexa 500 mg twice a day, simvastatin 10 mg at bedtime, metoprolol succinate 25 mg once a day. She is on amlodipine 5 mg once a day, angiotensin converting enzyme. She is on losartan potassium 50 mg once a day, Tylenol with Codeine 1 tablet twice a day. She is on tramadol 50 mg every 8 hours, gabapentin 600 mg 3 times a day, venlafaxine 75 mg once a day, alprazolam 1 mg 3 times a day, and sucralfate 1 g 3 times a day before meals. PHYSICAL EXAMINATION: GENERAL: On examining her, she looked well and was clearly in no apparent respiratory distress. No pallor, jaundice, cyanosis or thyromegaly. No jugular venous distention. No limb edema. VITAL SIGNS: Her heart rate was 63, blood pressure 123/68, temperature 97.9, respiratory rate was 16, and oxygen saturation was 93%. HEAD, EYES, EARS, NOSE AND THROAT: Normocephalic and atraumatic. NECK: Supple. HEART: Showed normal first and second heart sounds. No gallop, rub or murmur. CHEST: Clear to auscultation. No crepitation or rhonchi. ABDOMEN: Distended, soft, nontender. NEUROLOGIC: She was grossly intact. LABORATORY WORK: Her lab work on admission showed a white cell count of 10,000; hemoglobin 12.9; hematocrit 39; MCV 92; and platelet count of 366,000. Her chemistry showed a serum sodium 139, potassium 3.3, chloride 103, bicarbonate 24, anion gap of 12, BUN 8, creatinine 1, estimated GFR was 58 mL per minute. Her glucose was 95, calcium was 9.1, magnesium 2.4. Total bilirubin, AST, ALT, alkaline phosphatase were normal. Her beta natriuretic peptide was 634. Total protein was 7.5, albumin was 3.9. Her lipase was 113. Her first set of cardiac enzymes showed troponin to be less than 0.017. Her prothrombin time was 9.8, INR of 0.9, aPTT was 24. PLAN: To basically do 2 more sets of cardiac enzymes, check her fasting lipid profile, consult the Cardiology team. She has multiple risk factors for coronary artery disease. LUC CEBALLOS MD DR: NIRAJ/jorge JOB#: [id number] / [id number]
[2020-03-30 15:19] VITALS: BP 112/70
[2020-03-30] MEDS: METOPROLOL SUCC 24HR ER 25 MG TAB.ER.24H. PO SCH (16:07)
[2020-03-30] MEDS: VENLAFAXINE 75 MG TABLET. PO SCH (16:07)
[2020-03-30 16:08] VITALS: BP 112/70
[2020-03-30] MEDS: amLODIPine BESYLATE 5 MG TABLET PO SCH (16:08)
[2020-03-30] MEDS: LOSARTAN 50 MG TABLET. PO SCH (16:08)
--- NOTE | 2020-03-30 19:11 | DS ---
DATE OF DISCHARGE: 03/30/2020 HOSPITAL COURSE: The patient is a 54-year-old female patient who was admitted with chest pain. She has had 3 sets of cardiac enzymes that ruled out myocardial infarction. She normally follows with a talent advisor at [facility] and apparently she had cardiac catheterization done about 6 months ago, showed no obvious artery that required stent deployment and an echocardiogram done recently also showed that her left ventricular systolic function was normal. She was seen by the talent advisor, who recommended that the patient can be safely discharged home to follow with her primary talent advisor at [facility]. She is already on all the medications as needed including Ranexa as well as amlodipine for possible coronary artery spasm. PHYSICAL EXAMINATION: GENERAL: When I saw her this afternoon, she looked well and was clearly in no apparent respiratory distress. No pallor, jaundice, cyanosis or thyromegaly. No jugular venous distention. No limb edema. VITAL SIGNS: Her heart rate was 99, blood pressure was 112/70, temperature was 98.4, respiratory rate was 97. HEAD, EYES, EARS, NOSE AND THROAT: Showed normocephalic, atraumatic. NECK: Supple. HEART: Showed normal first and second heart sounds. No gallop or murmur. CHEST: Clear to auscultation. No crepitation or rhonchi. ABDOMEN: Distended, soft, nontender. No guarding or rigidity. No organomegaly. All hernial orifices intact. Bowel sounds normal. NEUROLOGIC: She was grossly intact. LABORATORY DATA: This morning showed a white cell count of 10,200, hemoglobin 13, hematocrit 39, MCV 92, and platelet count of 366,000. Her chemistry showed a serum sodium 139, potassium 3.3, chloride 103, bicarbonate 24, anion gap of 12, BUN 8, creatinine 1, estimated GFR was 58 mL per minute. Her glucose was 95, calcium was 9.1, magnesium 2.2. Total bilirubin, AST, ALT, alkaline phosphatase were normal. Total protein 7.5, albumin 3.9. Lipase was 113. She has 3 sets of cardiac enzymes that ruled out myocardial infarction. Her prothrombin time, INR and aPTT normal. Her EKG showed no evidence of any acute myocardial infarction. She was in normal sinus rhythm at a rate of [address] per minute with no [address] segment elevation. DISCHARGE MEDICATIONS: The patient was discharged home on Tylenol with Codeine 1 tablet twice a day as needed, alprazolam 1 mg 3 times a day, amlodipine 5 mg daily, gabapentin 600 mg 3 times a day, losartan potassium 50 mg daily, metoprolol succinate 25 mg once a day, Ranexa 500 mg twice a day, simvastatin 10 mg at bedtime, sucralfate 1 g 3 times a day before meals, tramadol 50 mg every 8 hours, and venlafaxine 75 mg once a day. FINAL DISCHARGE DIAGNOSES: Coronary artery disease, status post myocardial infarction x 2. 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 Other medical problems include hypertension, hyperlipidemia, chronic obstructive pulmonary disease, morbid obesity. Unfortunately, the patient continued to smoke. I have basically counseled her for the need for her to quit smoking. LUC CEBALLOS MD DR: NIRAJ/jorge JOB#: [id number] / [id number]
--- NOTE | 2020-03-30 19:32 | NUR ---
PATIENT IS DISCHARGED TO HOME . VS ARE STABLE, DISCHARGED INSTRUCTION GIVEN TO PATIENT. PT VERBALIZED UNDERSTANDING. PT LEFT ROOM 117 VIA W/C ACCOMPANIED BY THIS RN. PATIENT TAKEN HOME BY HER VIA PERSONAL VEHICLE.
== END 2020-03-30 19:35 | disposition home or self-care (01) ==
LOC: ER 16:17 → 1 SOUTH 17:51
PROVIDERS: ADMIT Internal Medicine; ATTEND Internal Medicine
DX: I25.10 Atherosclerotic heart disease of native coronary artery without angina pectoris (principal); I25.2 Old myocardial infarction; I10 Essential (primary) hypertension; J44.9 Chronic obstructive pulmonary disease, unspecified; E66.01 Morbid (severe) obesity due to excess calories; E78.00 Pure hypercholesterolemia, unspecified; E78.5 Hyperlipidemia, unspecified; E87.6 Hypokalemia; E11.51 Type 2 diabetes mellitus with diabetic peripheral angiopathy without gangrene; M79.7 Fibromyalgia; Z79.899 Other long term (current) drug therapy
CPT/HCPCS: 36415; 71045; 80053; 81001; 83690; 83735; 83880; 84484; 85025; 85610; 85730; 93005; 96372; 96374; 96375; 99285; G0378; G0379; J1650; J2270; J2405

== ENCOUNTER → 2020-08-31 | Outpatient (CLI) | payer BC ==
[~2020-08-31] MED LIST changes: +ACET-704 PO; +AMLO-186 PO; -AMLO5TAB10 PO; +LOSA50TA86 PO; +METO-239 PO; +RANO500T2 PO
--- NOTE | 2020-08-31 12:07 | RAD ---
EXAM: Abdomen, single view. HISTORY: Pain. COMPARISON: None. FINDINGS: Frontal views of the abdomen and pelvis are obtained. There is gas and stool within the colon. There is no evidence of bowel obstruction. The lungs are clear. The heart is normal in size. IMPRESSION: No obstructive bowel gas pattern. Electronically signed by: Eliane Ndiaye MD (08/31/2020 12:04 PM) [id number]
[2020-08-31 12:45] LABS: BASO # 0.1 x10^3/uL (0.0-0.2); BASO % 1 % (0-3); EOS # 0.2 x10^3/uL (0.0-0.7); EOS % 1 % (0-3); HEMATOCRIT 44.9 % (36.0-47.0); HEMOGLOBIN 14.1 g/dL (12.0-15.5); LYMPH # 4.2 x10^3/uL (1.0-4.8); LYMPH % 26 % (24-48); MEAN CORPUSCULAR HEMOGLOBIN 30 pg (25-35); MEAN CORPUSCULAR HGB CONC 32 g/dL (31-37); MEAN CORPUSCULAR VOLUME 96 fL (79-100); MONO % 6 % (0-9); NEUT # 10.6 x10^3uL (1.8-7.7); NEUT % 66 % (31-73); PLATELET COUNT 218 x10^3/uL (140-400); RED BLOOD COUNT 4.68 x10^6/uL (3.50-5.40); RED CELL DISTRIBUTION WIDTH 20.3 % (11.5-14.5); WHITE BLOOD COUNT 16.1 x10^3/uL (4.0-11.0)
[2020-08-31 12:46] LABS: ALBUMIN 3.7 g/dL (3.4-5.0); CALCIUM 9.4 mg/dL (8.5-10.1); GFR 57.8; POTASSIUM 3.9 mmol/L (3.5-5.1); TOTAL BILIRUBIN 0.2 mg/dL (0.2-1.0); TOTAL PROTEIN 7.4 g/dL (6.4-8.2)
[2020-08-31 13:51] LABS: % LYMPHS 23 % (24-48); % MONOS 3 % (0-10); % SEGS 74 % (35-66)
[2020-08-31 13:53] LABS: ANISOCYTOSIS SLIGHT; PLT ESTIMATE ADEQUATE (ADEQUATE)
== END ==
LOC: LAB 11:29
PROVIDERS: ATTEND Family Medicine
DX: K59.00 Constipation, unspecified (principal)
CPT/HCPCS: 36415; 74018; 80053; 84443; 85007; 85025

== ENCOUNTER 2020-12-18 14:55 | Emergency (ER) | payer BC ==
[~2020-12-18] VITALS: Ht 162.6 cm; Wt 104.0 kg
[2020-12-18 15:10] VITALS: BP 96/52
[2020-12-18] MEDS ORDERED: IV NORMAL SALINE 500ML 500 ML IV SCH (15:15)
--- NOTE | 2020-12-18 15:18 | RAD ---
XR CHEST 1V History: Reason: SYNCOPE / Spl. Instructions: / History: Comparison: 03/29/2020 Technique: Portable AP chest radiograph. Findings: The lungs are adequately and symmetrically inflated. No airspace consolidation, pleural effusion or p neumothorax. The cardiomediastinal silhouette and pulmonary vasculature are within normal limits. Sof t tissues and osseous structures are unremarkable. Impression: 1. No acute cardiopulmonary process. Electronically signed by: Francisco Vincent MD (12/18/2020 3:16 PM) [facility]
--- NOTE | 2020-12-18 15:26 | EKG ---
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
--- NOTE | 2020-12-18 15:28 | PHYS DOC ---
Past History Past Medical History: Angina, Depression, Fibromyalgia, High Cholesterol, Hypertension, Sciatica, Other Additional Past Medical Histor: ddd, pvd, headaches, stomach erosion, bleeding ulcer, sleep apnea (SANDRITA BELTRAN APRN) Past Surgical History: , Hysterectomy (SANDRITA BELTRAN APRN) Alcohol Use: Rarely (SANDRITA BELTRAN APRN) General Adult EDM: Chief Complaint: SYNCOPE HPI: HPI: Patient is a 55-year-old female who presents with syncopal episodes times today. Patient denies any injuries from fall. Patient states that she has a history of syncope. Patient is complaining of sciatic pain which is chronic. Patient denies taking anything at home for the pain. Patient sees Dr. Ca. Patient has a history of hypertension, high cholesterol, [place]. Patient denies urinary retention or loss of bowel. (SANDRITA BELTRAN APRN) Review of Systems: Review of Systems: Constitutional: Denies fever or chills Eyes: Denies change in visual acuity HENT: Denies nasal congestion or sore throat Respiratory: Denies cough or shortness of breath Cardiovascular: Denies chest pain or edema GI: Denies abdominal pain, nausea, vomiting, bloody stools or diarrhea : Denies dysuria Musculoskeletal: Reports lower back pain Integument: Denies rash Neurologic: Denies headache, focal weakness or sensory changes Endocrine: Denies polyuria or polydipsia Lymphatic: Denies swollen glands Psychiatric: Denies depression or anxiety (SANDRITA BELTRAN APRN) Current Medications: Current Meds: Current Medications Medications (Trade) Dose Ordered Sig/Juno Start Time Stop Time Status Last Admin Dose Admin Sodium Chloride 500 ml @ 500 mls/hr Q1H 12/18/20 15:15 (SANDRITA BELTRAN APRN) Allergies: Allergies: Allergies Coded Allergies Type Severity Reaction Last Updated Verified No Known Drug Allergies 01/05/20 No (SANDRITA BELTRAN APRN) Physical Exam: PE: Constitutional: Well developed, well nourished, no acute distress, non-toxic a ppearance. [] HENT: Normocephalic, atraumatic, bilateral external ears normal, oropharynx moist, no oral exudates, nose normal. [] Eyes: PERRLA, EOMI, conjunctiva normal, no discharge. [] Neck: Normal range of motion, no tenderness, supple, no stridor. [] Cardiovascular:Heart rate regular rhythm, no murmur [] Lungs & Thorax: Bilateral breath sounds clear to auscultation [] Abdomen: Bowel sounds normal, soft, no tenderness, no masses, no pulsatile masses. [] Skin: Warm, dry, no erythema, no rash. [] Back: Lower back tenderness, no CVA tenderness. [] Extremities: No tenderness, no cyanosis, no clubbing, ROM intact, no edema. [] Neurologic: Alert and oriented X 3, normal motor function, normal sensory function, no focal deficits noted. [] Psychologic: Affect normal, judgement normal, mood normal. [] (SANDRITA BELTRAN APRN) EKG: EKG: Sinus rhythm. Heart rate 59 bpm. [] (SANDRITA BELTRAN APRN) Radiology/Procedures: Radiology/Procedures: []CT head without contrast. CT cervical spine without contrast. PQRS statement: CT scans at this facility use dose reduction including either automated exposure control, iterative reconstructions, and /or weight based radiation dosing via mA and kV modification when appropriate to reduce radiation dose to as low as reasonably achievable. HISTORY: Syncope. No other clinical history was provided. No intracranial hemorrhage, mass, hydrocephalus, extra-axial fluid collections or infarction. There is a 1 cm linear right frontal lobe periventricular white matter hypodense lesion image 15 could represent an area of chronic ischemic or demyelinating wh ite matter injury. Orbits, mastoids and bones are unremarkable. IMPRESSION: No acute intracranial CT abnormality. CT cervical spine findings: Craniocervical junction intact. Cervical vertebral body height and alignment intact. No fracture of the cervical spine. Some scattered mild disc osteophytes and uncovertebral spurring, contributes to spinal canal and neural foraminal stenosis at C5-C6. Lung apices and paraspinal tissues are unremarkable. IMPRESSION: No acute osseous injury of the cervical spine. Electronically signed by: Chivo Child MD (12/18/2020 3:53 PM) [facility] DICTATED AND SIGNED BY: CHIVO CHILD MD DATE: 12/18/20 1547 XR CHEST 1V History: Reason: SYNCOPE / Spl. Instructions: / History: Comparison: 03/29/2020 Technique: Portable AP chest radiograph. Findings: The lungs are adequately and symmetrically inflated. No airspace consolidation, pleural effusion or pneumothorax. The cardiomediastinal silhouette and pulmonary vasculature are within normal limits. Soft tissues and osseous structures are unremarkable. Impression: 1. No acute cardiopulmonary process. Electronically signed by: Francisco Vincent MD (12/18/2020 3:16 PM) [facility] (SANDRITA BELTRAN APRN) Heart Score: HEART Score for Chest Pain: HEART Score for Chest Pain Response (Comments) Value History Moderately Suspicious 1 ECG Normal 0 Age >45 - < 65 1 Risk Factors >3 Risk Factors or Hx CAD 2 Troponin < Normal Limit 0 Total 4 Risk Factors: Risk Factors: DM, Current or recent (<one month) smoker, HTN, HLP, family history of CAD, obesity. Risk Scores: Score 0 - 3: 2.5% MACE over next 6 weeks - Discharge Home Score 4 - 6: 20.3% MACE over next 6 weeks - Admit for Clinical Observation Score 7 - 10: 72.7% MACE over next 6 weeks - Early Invasive Strategies (SANDRITA BELTRAN APRN) Course & Med Decision Making: Course & Med Decision Making Pertinent Labs and Imaging studies reviewed. (See chart for details) []Patient is a 55-year-old female who presents with syncopal episodes times today. Patient denies any injuries from fall. Patient states that she has a h istory of syncope. Patient is complaining of sciatic pain which is chronic. Patient denies taking anything at home for the pain. Patient sees Dr. Ca. Patient has a history of hypertension, high cholesterol, [place]. Patient denies urinary retention or loss of bowel. EKG normal sinus rhythm. Patient's primary goal is to get pain medication for sciatic nerve pain. Ordering Flexeril and hydrocodone. Patient states that her pain is resolved. "I am ready to go home". CT of head and neck are negative for any acute abnormalities. Lab work unremarkable. Heart score of 4. Troponin negative. Patient being discharged to home with . Patient was treated for chronic sciatic nerve pain. Flexeril ordered for patient at home and instructed to take ibuprofen for discomfort. Patient is to follow-up with her PCP for management of symptoms. Instructed patient to return to the emergency room with worsening symptoms or concerns. (SANDRITA BELTRAN APRN) Dragon Disclaimer: Dragon Disclaimer: This electronic medical record was generated, in whole or in part, using a voice recognition dictation system. (SANDRITA BELTRAN APRN) Departure Departure: Impression: Primary Impression: Sciatica Qualified Codes: M54.31 - Sciatica, right side; M54.32 - Sciatica, left side Disposition: 01 DC HOME SELF CARE/HOMELESS Condition: IMPROVED Referrals: WAYNE DENNY MD (PCP) Patient Instructions: Sciatica, [id number] Additional Instructions: You were seen in the emergency room today for a syncopal episode and sciatic back pain. The CT of your head and neck were negative for acute abnormalities. You will need to follow-up with your PCP regarding your chronic back pain. I am sending you home with Flexeril. Please continue taking ibuprofen as well for discomfort. Please return to the emergency room with worsening symptoms or concerns. EMERGENCY DEPARTMENT GENERAL DISCHARGE INSTRUCTIONS Thank you for coming to [facility] (ED) today and trusting us with you care. We trust that you had a positivie experience in our Emergency Department. If you wish to speak to the department management, you may call the director at [phone]. YOUR FOLLOW UP INSTRUCTIONS ARE FOLLOWS: 1. Do you have a private Doctor? If you do not have a private doctor, please ask for a resource list of physicians or clinics that may be able to assist you with follow up care. 2. The Emergency Physician has interpreted your x-rays. The X-Ray specialist will also review them. If there is a change in the findings, you will be notified in 48 hours when at all possible. 3. A lab test or culture has been done, your results will be reviewed and you w ill be notified if you need a change in treatment. ADDITIONAL INSTRUCTIONS AND INFORMATION: 1. Your care today has been supervised by a physician who is specially trained in emergency care. Many problems require more than one evaluation for a complete diagnosis and treatment. We recommend that you schedule your follow up appointment as recommended to ensure complete treatment of you illness or injury. If you are unable to obtain follow up care and continue to have a problem, or if your condition worsens, we recommend that you return to the ED. 2. We are not able to safely determine your condition over the phone nor are we able to give sound medical advice over the phone. For these safety reasons, if you call for medical advice we will ask you to come to the ED for further evaluation. 3. If you have any questions regarding these discharge instructions please call the ED at [phone]. SAFETY INFORMATION: In the interest of safety, wellness, and injury prevention; we encourage you to wear your sealbelt, if you smoke; quite smoking, and we encourage family to use a protective helmet for bicycling and other sporting events that present an increased risk for head injury. IF YOUR SYMPTOMS WORSEN OR NEW SYMPTOMS DEVELOP, OR YOU HAVE CONCERNS ABOUT YOUR CONDITION; OR IF YOUR CONDITION WORSENS WHILE YOU ARE WAITING FOR YOUR FOLLOW UP APPOINTMENT; EITHER CONTACT YOUR PRIMARY CARE DOCTOR, THE PHYSICIAN WHOSE NAME AND NUMBER YOU WERE GIVEN, OR RETURN TO THE ED IMMEDIATELY. Scripts Cyclobenzaprine Hcl (CYCLOBENZAPRINE HCL) 10 Mg Tablet 1 TAB PO TID PRN PRN for PAIN, #12 TAB Prov: SANDRITA BELTRAN APRN 12/18/20 Attending Signature Attending Signature I have reviewed the PA/PERSONAL LINES ACCOUNT EXECUTIVE's note and plan of care. I was available for consultation as needed during the patient's visit in the emergency department. I agree with the clinical impression, plan, and disposition. (RADHA VALENCIA DO) SANDRITA BELTRAN APRN Dec 18, 2020 15:28 RADHA VALENCIA DO Dec 21, 2020 04:27
[2020-12-18] MEDS ORDERED: CYCLOBENZAPRINE 10 MG TABLET. PO ONE (15:30)
[2020-12-18] MEDS ORDERED: HYDROcodone/APAP 5/325MG 1 TAB TABLET PO ONE (15:30)
--- NOTE | 2020-12-18 15:56 | RAD ---
CT head without contrast. CT cervical spine without contrast. PQRS statement: CT scans at this facility use dose reduction including either automated exposure cont rol, iterative reconstructions, and /or weight based radiation dosing via mA and kV modification when appropriate to reduce radiation dose to as low as reasonably achievable. HISTORY: Syncope. No other clinical history was provided. No intracranial hemorrhage, mass, hydroceph alus, extra-axial fluid collections or infarction. There is a 1 cm linear right frontal lobe perivent ricular white matter hypodense lesion image 15 could represent an area of chronic ischemic or demyeli nating white matter injury. Orbits, mastoids and bones are unremarkable. IMPRESSION: No acute intracranial CT abnormality. CT cervical spine findings: Craniocervical junction intact. Cervical vertebral body height and alignm ent intact. No fracture of the cervical spine. Some scattered mild disc osteophytes and uncovertebral spurring, contributes to spinal canal and neural foraminal stenosis at C5-C6. Lung apices and parasp inal tissues are unremarkable. IMPRESSION: No acute osseous injury of the cervical spine. Electronically signed by: Alex Child MD (12/18/2020 3:53 PM) [facility]
[2020-12-18] MEDS ORDERED: CYCL-331 PO (16:23)
[2020-12-18 16:40] LABS: CREATININE 0.9 mg/dL (0.6-1.0); GFR 65.2; POTASSIUM 3.9 mmol/L (3.5-5.1)
[2020-12-18] MEDS ORDERED: HYDROmorphone PF 1 MG/ML DISP.SYRIN IVP ONE (16:45)
[2020-12-18 16:54] LABS: EOS % 2 % (0-3); HEMOGLOBIN 12.9 g/dL (12.0-15.5); LYMPH % 38 % (24-48); MEAN CORPUSCULAR HEMOGLOBIN 29 pg (25-35); MEAN CORPUSCULAR HGB CONC 31 g/dL (31-37); MEAN CORPUSCULAR VOLUME 92 fL (79-100); MONO % 7 % (0-9); NEUT % 51 % (31-73); PLATELET COUNT 358 x10^3/uL (140-400); RED BLOOD COUNT 4.46 x10^6/uL (3.50-5.40); RED CELL DISTRIBUTION WIDTH 17.2 % (11.5-14.5); WHITE BLOOD COUNT 8.8 x10^3/uL (4.0-11.0)
[2020-12-18 16:55] LABS: BASO # 0.1 x10^3/uL (0.0-0.2); BASO % 1 % (0-3); EOS # 0.2 x10^3/uL (0.0-0.7); LYMPH # 3.4 x10^3/uL (1.0-4.8); MONO # 0.6 x10^3/uL (0.0-1.1); NEUT # 4.5 x10^3uL (1.8-7.7)
== END 2020-12-18 17:17 | disposition home or self-care (01) ==
LOC: ER 14:55
DX: M54.41 Lumbago with sciatica, right side (principal); M54.42 Lumbago with sciatica, left side; R55 Syncope and collapse; M79.7 Fibromyalgia; E78.00 Pure hypercholesterolemia, unspecified; I10 Essential (primary) hypertension; Z98.890 Other specified postprocedural states; Z90.710 Acquired absence of both cervix and uterus; W18.39XA Other fall on same level, initial encounter; Y93.89 Activity, other specified; Y92.89 Other specified places as the place of occurrence of the external cause; Y99.8 Other external cause status
CPT/HCPCS: 36415; 70450; 71045; 72125; 80048; 84484; 85025; 93005; 96360; 99285; J7040

== ENCOUNTER 2021-10-17 17:12 | Emergency (ER) | payer BC ==
[~2021-10-17] VITALS: Ht 162.6 cm; Wt 104.0 kg
[~2021-10-17 17:12] MED LIST changes: +CYCL10TA19 PO
--- NOTE | 2021-10-17 17:49 | PHYS DOC ---
Past History Past Medical History: Anxiety, CAD, CVA, High Cholesterol, Heart Disease, Hypertension, [place], Stroke, TIA, Other Additional Past Medical Histor: arrhythmia per pt Past Surgical History: No Surgical History Past Surgical History STentss Alcohol Use: Occasionally General Adult EDM: Chief Complaint: CHEST PAIN HPI: HPI: '." . I ve been having chest pain since about 0500 am.. it runs into my Rt. shoulder.. I ve been taking my meds as directed.. 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 Dr. Yu ..I did not come.. until after [place]..,..but I got to hurting too bad.. Patient is a 56 year old female who presents with above hx and complaints Chest pain that radiates to Rt. shoulder. Pt rates pain as 9/10 currently. Pt. had 2 prior HI, 5 Strokes, HTN, and elevated lipids. Pt. follows with Dr. Denny Pt. has had two COVID vaccination, but no booster yet. No flu vaccinations. Review of Systems: Review of Systems: Constitutional: Denies fever or chills Eyes: Denies change in visual acuity HENT: Denies nasal congestion or sore throat Respiratory: Complaints of shortness of breath Cardiovascular: complaints of chest pain GI: Denies abdominal pain, nausea, vomiting, bloody stools or diarrhea : Denies dysuria Musculoskeletal: Complaints of Rt. shoulder pain Integument: Denies rash Neurologic: Denies headache, focal weakness or sensory changes Endocrine: Denies polyuria or polydipsia Lymphatic: Denies swollen glands Psychiatric: Denies depression or anxiety Family History: Family History: HTN Current Medications: Current Meds: See Nursing for home meds Allergies: Allergies: Allergies Coded Allergies Type Severity Reaction Last Updated Verified No Known Drug Allergies 01/05/20 No Physical Exam: PE: Constitutional: moderate acute distress, non-toxic appearance. [] HENT: Normocephalic, atraumatic, bilateral external ears normal, oropharynx moist, no oral exudates, nose normal. [] Eyes: PERRLA, EOMI, conjunctiva normal, no discharge. [] Neck: Normal range of motion, no tenderness, supple, no stridor. [] Cardiovascular:Heart rate regular rhythm, no murmur []. PMI to lt. Lungs & Thorax: Bilateral breath sounds equal apexes with few scattered wheezes and basilar crackles on auscultation [] Abdomen: Bowel sounds normal, soft, no tenderness, no masses, no pulsatile masses. [] Skin: Warm, dry, no erythema, no rash. [] Back: No tenderness, no CVA tenderness. [] Extremities: No tenderness, no cyanosis, no clubbing, ROM intact, trace ankle edema. No cording. Neurologic: Alert and oriented X 3, normal motor function, normal sensory function, no focal deficits noted. [] Psychologic: Affect anxious, judgement normal, mood normal. [] Current Patient Data: Vital Signs: Vital Signs Date Time Temp Pulse Resp B/P (MAP) Pulse Ox O2 Delivery O2 Flow Rate FiO2 10/17/21 17:43 98.1 89 18 153/84 (107) 96 Room Air EKG: EKG: My interpretation of EKG shows sinus at 89, contour changes in inferior leads, prolonged QT- QT 390 ms and[]QTC at 476 ms. Abdnormal EKG My interpretation second EKG shows a sinus rhythm at 79 bpm. There is some contour changes in inferior leads. But no significant change from prior EKG. No findings acute STEMI or contralateral changes. Time of EKG is 2106 hrs. Radiology/Procedures: Radiology/Procedures: [][address] [address] IMAGING REPORT Signed PATIENT: MARY LYON LACCOUNT: [id number] : 1965 LOCATION: ER AGE: 56 SEX: F EXAM STATUS: REG ER ORD. PHYSICIAN: JEANIE LIN MD REASON: PAIN PROCEDURE: SHOULDER 2+V RIGHT Right shoulder 3 views, AP chest. HISTORY: Shoulder pain, chest pain Right shoulder 3 views were taken of the right shoulder. There is not evidence of a fracture or dislocation or osseous abnormality. AP chest AP view was taken of the chest. Lungs are clear. There is no pleural effusion. Heart is within normal limits in size. IMPRESSION: 1. No acute infiltrates. Electronically signed by: Gorge Talbert MD (10/17/2021 6:10 PM) [facility] DICTATED AND SIGNED BY: GORGE TALBERT MD DATE: 10/17/21 180 CC: WAYNE DENNY MD; JEANIE LIN MD ~MTH0 0 Heart Score: C/O Chest Pain: Yes HEART Score for Chest Pain: HEART Score for Chest Pain Response (Comments) Value History Moderately Suspicious 1 ECG Nonspecific Repolarizatio 1 Age >45 - < 65 1 Risk Factors 1 or 2 Risk Factors 1 Troponin < Normal Limit 0 Total 4 Risk Factors: Risk Factors: DM, Current or recent (<one month) smoker, HTN, HLP, family history of CAD, obesity. Risk Scores: Score 0 - 3: 2.5% MACE over next 6 weeks - Discharge Home Score 4 - 6: 20.3% MACE over next 6 weeks - Admit for Clinical Observation Score 7 - 10: 72.7% MACE over next 6 weeks - Early Invasive Strategies Course & Med Decision Making: Course & Med Decision Making Pertinent Labs and Imaging studies reviewed. (See chart for details) Pt. at 2135 - review labs. Neg. repeat Trop. and D- dimer, no acute changes on EKG interval. Pt. pain seems to be so history of right shoulder movements. Patient currently states she feels much better and wants to be discharged. Reviewed risk and and reconsider but decision. Begged pt. to reconsider risks. Patient to keep follow-up with Dr. Yu on 1228. Patient return at any time. Impression: 1. Chest Pain 2. Right shoulder pain [] Dragon Disclaimer: Dragon Disclaimer: This electronic medical record was generated, in whole or in part, using a voice recognition dictation system. Departure Departure: Referrals: WAYNE DENNY MD (PCP) Dragon Disclaimer This chart was dictated in whole or in part using Voice Recognition software in a busy, high-work load, and often noisy Emergency Department environment. It may contain unintended and wholly unrecognized errors or omissions. Dragon Disclaimer This chart was dictated in whole or in part using Voice Recognition software in a busy, high-work load, and often noisy Emergency Department environment. It may contain unintended and wholly unrecognized errors or omissions. JEANIE LIN MD Oct 17, 2021 17:49
[2021-10-17] MEDS ORDERED: IV RINGERS SOLUTION,LACTATED 1,000 ML IV SCH (18:00)
--- NOTE | 2021-10-17 18:13 | RAD ---
Right shoulder 3 views, AP chest. HISTORY: Shoulder pain, chest pain Right shoulder 3 views were taken of the right shoulder. There is not evidence of a fracture or dislo cation or osseous abnormality. AP chest AP view was taken of the chest. Lungs are clear. There is no pleural effusion. Heart is within normal limits in size. IMPRESSION: 1. No acute infiltrates. Electronically signed by: Gorge Talebrt MD (10/17/2021 6:10 PM) [facility]
--- NOTE | 2021-10-17 18:20 | EKG ---
[address] [address] Test Date: 2021-10-17 Test Time: 17:39:11 Pat Name: MARY LYON Department: Room: Gender: F Vp [employer] Development: IRVIN : 1965 Requested By: KENDY MANZO Order Number: [id number] Reading MD: Jose Medellin MD Measurements Intervals [place] Rate: 89 P: 42 NV: 138 QRS: 12 QRSD: 86 T: -6 QT: 390 QTc: 476 Interpretive Statements SINUS RHYTHM Electronically Signed On 10-21-2021 13:28:14 [employer]IFICIAL [employer]ERRY MAKER by Jose Medellin MD
[2021-10-17] MEDS ORDERED: ASPIRIN CHEWABLE 81 MG TABLET. PO ONE (18:30)
[2021-10-17] MEDS ORDERED: ENOXAPARIN ** NOTE DOSE ** SYRINGE SQ ONE (18:45)
[2021-10-17] MEDS ORDERED: MORPHINE SULFATE 10 MG/ML SYRINGE. SQ ONE (18:45)
[2021-10-17] MEDS ORDERED: NITROGLYCERIN OINT 1 GM PACKET. TP ONE (18:45)
[2021-10-17 19:14] LABS: BASO # 0.1 x10^3/uL (0.0-0.2); BASO % 1 % (0-3); EOS # 0.2 x10^3/uL (0.0-0.7); EOS % 2 % (0-3); HEMATOCRIT 40.3 % (36.0-47.0); LYMPH # 3.6 x10^3/uL (1.0-4.8); LYMPH % 33 % (24-48); MEAN CORPUSCULAR HEMOGLOBIN 29 pg (25-35); MEAN CORPUSCULAR HGB CONC 32 g/dL (31-37); MEAN CORPUSCULAR VOLUME 89 fL (79-100); MONO # 0.7 x10^3/uL (0.0-1.1); MONO % 7 % (0-9); NEUT # 6.4 x10^3uL (1.8-7.7); NEUT % 58 % (31-73); PLATELET COUNT 386 x10^3/uL (140-400); RED BLOOD COUNT 4.55 x10^6/uL (3.50-5.40); RED CELL DISTRIBUTION WIDTH 17.3 % (11.5-14.5); WHITE BLOOD COUNT 10.9 x10^3/uL (4.0-11.0)
[2021-10-17 20:08] LABS: BARBITURATES NEG (NEG); BENZODIAZEPINES NEG (NEG); CANNABINOIDS NEG (NEG); COCAINE NEG (NEG); METHADONE NEG (NEG); OPIATES POS (NEG); PHENCYCLIDINE NEG (NEG)
[2021-10-17 20:13] LABS: AMPHETAMINE/METHAMPHETAMINE NEG (NEG)
[2021-10-17 20:23] LABS: BACTERIA,URINE MOD /HPF (0-FEW); BILIRUBIN,URINE NEG (NEG); CLARITY,URINE CLEAR; COLOR,URINE YELLOW; GLUCOSE,URINE NEG (NEG); NITRITE,URINE NEG (NEG); SQUAMOUS EPITHELIAL CELL,UR MANY /LPF; UROBILINOGEN,URINE 0.2 mg/dL (0.2 mg/dL)
[2021-10-17 20:48] LABS: CALCIUM 9.9 mg/dL (8.5-10.1); CREATININE 1.1 mg/dL (0.6-1.0); GFR 51.6; POTASSIUM 3.7 mmol/L (3.5-5.1)
[2021-10-17 21:00] LABS: ALBUMIN 4.4 g/dL (3.4-5.0); DIRECT BILIRUBIN 0.1 mg/dL (0.0-0.2); MAGNESIUM 2.2 mg/dL (1.8-2.4); TOTAL BILIRUBIN 0.4 mg/dL (0.2-1.0); TOTAL PROTEIN 8.1 g/dL (6.4-8.2)
[2021-10-17 21:11] VITALS: BP 164/79
[2021-10-17] MEDS ORDERED: KETOROLAC 30 MG/ML VIAL. IVP ONE (21:30)
--- NOTE | 2021-10-17 23:59 | EKG ---
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
== END 2021-10-17 21:50 | disposition home or self-care (01) ==
LOC: ER 17:12
DX: R07.89 Other chest pain (principal); M25.511 Pain in right shoulder; Z86.73 Personal history of transient ischemic attack (TIA), and cerebral infarction without residual deficits
CPT/HCPCS: 36415; 71045; 73030; 80048; 80076; 80307; 81001; 82550; 83690; 83735; 83880; 84443; 84484; 85025; 85379; 85610; 85730; 87086; 87426; 93005; 96361; 96372; 96374; 99285; C9803; J1650; J1885; J2270; J7120; U0003